=== PATIENT | female | born 1960 | race African-American/Black ===

== ENCOUNTER 2020-04-04 15:54 | Outpatient (REF) | payer OTHER, SELFPAY | END 2020-04-04 15:55 | disposition home or self-care (01) | LOC: HO.LAB 15:54 | PROVIDERS: PCP Internal Medicine; Visit Provider Internal Medicine | DX: Z20.828 Contact with and (suspected) exposure to other viral communicable diseases (principal) | CPT/HCPCS: C9803; U0003 ==

== ENCOUNTER 2020-06-26 07:00 | Day surgery (SDC) | payer BC, SELFPAY ==
[2020-06-20 15:06] VITALS: BMI 46.7
--- NOTE | 2020-06-25 09:40 | P.CONAN_ITS ---
Documented by User: Sarah Bazzi 06/25/20 09:42 HPI - Anesthesia Eval Consult details Narrative: 59yo F for Colon[facility] Past Medical History Medical History (Updated 06/26/20 @ 08:13 by Clari Morrow) Abnormal colonoscopy Depression FHx: colon cancer GERD (gastroesophageal reflux disease) Hyperlipidemia Hypertension Insomnia Mammogram normal Morbid obesity Normal Pap smear Rectal bleeding Snoring Vitamin D deficiency Family History Family History (Updated 03/14/20 @ 14:02 by Kelsea Collins, PAUL, SANTINO) Father History of CVA (cerebrovascular accident) Stroke Mother Pancreatic cancer Diabetes mellitus Sister Colon cancer Brother Stroke Maternal Grandfather No problems noted. Maternal Grandmother No problems noted. Paternal Grandfather No problems noted. Paternal Grandmother No problems noted. Maternal Aunt Breast cancer Maternal Uncle Cancer Brother AIDS Brother Lung cancer Sister Schizophrenia Brother Melanoma Brother No problems noted. Sister Lupus Surgical History Surgical History (Updated 03/14/20 @ 13:54 by Kelsea Collins, PAUL, SANTINO) Hammer toe Social History Social History (Updated 06/20/20 @ 15:06 by Paige Chopra) Alcohol intake: never Smoking Status: Never smoker Use of substances other than those prescribed or required for medical reasons: No Have you been hit, kicked, punched, or otherwise hurt by someone within the past year? If so, by whom?: No Advance Directives: No Advance Directives Information Provided: No Advance Directives on File: No Meds Allergies Allergy/AdvReac Type Severity Reaction Status Date / Time No Known Allergies Allergy Verified 06/26/20 07:16 Home Medications Medication Instructions Recorded Confirmed Type cholecalciferol (vitamin D3) 25 25 mcg PO DAILY 03/19/20 06/20/20 History mcg (1,000 unit) tablet magnesium PO 03/19/20 03/19/20 History multivitamin 1 tab PO DAILY 03/19/20 06/20/20 History cyanocobalamin (vitamin B-12) 1,000 mcg PO DAILY 06/20/20 06/20/20 History [Vitamin B-12] Exam Exam Date and Time: June 25, 2020 0940 Height,Weight and Vital Signs: Height 5 ft 3 in Weight 119.748 kg Assessment and Plan Assessment Anesthesia Assessment: Chart Reviewed Documented by User: Clari Morrow 06/26/20 08:14 [facility] Past Medical History Medical History (Updated 06/26/20 @ 08:13 by Clari Morrow) Abnormal colonoscopy Depression FHx: colon cancer GERD (gastroesophageal reflux disease) Hyperlipidemia Hypertension Insomnia Mammogram normal Morbid obesity Normal Pap smear Rectal bleeding Snoring Vitamin D deficiency Family History Family History (Updated 03/14/20 @ 14:02 by PAUL Kraus, SANTINO) Father History of CVA (cerebrovascular accident) Stroke Mother Pancreatic cancer Diabetes mellitus Sister Colon cancer Brother Stroke Maternal Grandfather No problems noted. Maternal Grandmother No problems noted. Paternal Grandfather No problems noted. Paternal Grandmother No problems noted. Maternal Aunt Breast cancer Maternal Uncle Cancer Brother AIDS Brother Lung cancer Sister Schizophrenia Brother Melanoma Brother No problems noted. Sister Lupus Family history of problems with anesthesia: No Surgical History Surgical History (Updated 03/14/20 @ 13:54 by Kelsea Collins, PAUL, SANTINO) Hammer toe History of Problems with Anesthesia: No Social History Social History (Updated 06/20/20 @ 15:06 by Paige Chopra) Alcohol intake: never Smoking Status: Never smoker Use of substances other than those prescribed or required for medical reasons: No Have you been hit, kicked, punched, or otherwise hurt by someone within the past year? If so, by whom?: No Advance Directives: No Advance Directives Information Provided: No Advance Directives on File: No Meds Allergies Allergy/AdvReac Type Severity Reaction Status Date / Time No Known Allergies Allergy Verified 06/26/20 07:16 Home Medications Medication Instructions Recorded Confirmed Type cholecalciferol (vitamin D3) 25 25 mcg PO DAILY 03/19/20 06/20/20 History mcg (1,000 unit) tablet magnesium PO 03/19/20 03/19/20 History multivitamin 1 tab PO DAILY 03/19/20 06/20/20 History cyanocobalamin (vitamin B-12) 1,000 mcg PO DAILY 06/20/20 06/20/20 History [Vitamin B-12] Exam Height,Weight and Vital Signs: Vital Signs Temp Pulse Resp BP Pulse Ox 06/26/20 07:16 97.2 F 91 20 138/91 H 98 Airway Mallampati Class: II TM Dist: >3cm Neck ROM: Full Partial: Upper Loose/Missing/Broken Teeth: Yes (1 cracked tooth back right) Heart: RRR Lungs: CTAB Assessment and Plan Assessment Anesthesia Assessment: Anesthesia Plan Discussed and Chart Reviewed Final Anesthetic Review NPO: Yes ASA Class: III Final Preanesthetic Review: No Changes in Pt Med Stat, Meds/Allgs Chart Reviewed, Consent Obtained/Reviewed and Anes Risks/Benef Reviewed Patient Risk: Intermediate Procedure Risk: Low Assessment/Block/Sedation in SS: Assess/Block/Sedation-SS Anesthetic Plan Anesthetic Plan: MAC: Disposition: Standard PACU
[2020-06-26 07:16] VITALS: BP 138/91; PULSE 91; RESP 20; TEMP 36.2; O2SAT 98
--- NOTE | 2020-06-26 07:50 | PC.NURSE ---
PATIENT GIVEN FLEETS ENEMA AT 0740 WITH BROWNISH OUTPUT. PATIENT GIVEN ANOTHER FLEETS ENEMA AT 0750.
[2020-06-26] MEDS: Lactated Ringers 1,000 ML 100 ML IVCONT (08:06)
--- NOTE | 2020-06-26 08:40 | MHC.SHP ---
Pre-Procedural Eval Section A The patient is an INPATIENT: No Changes since office visit: No Cold of Flu in the past 2 weeks, No New Medical Problems, No Changes in Medication and No Patient answered all questions The History & Physical has been completed within 30 days and I have reviewed it.: Yes Section B Chief Complaint: bleeding Allergies: Allergies Allergy/AdvReac Type Severity Reaction Status Date / Time No Known Allergies Allergy Verified 06/26/20 07:16 Plan I have reviewed the history and physical and performed a pertinent physical examination on my patient. No changes have occurred unless specified.
[2020-06-26] MEDS: Sodium Phosphate,Mono-Dibasic 133 ML ENEMA PR ×2 (08:46)
[2020-06-26 09:20] VITALS: BP 105/50; PULSE 84; RESP 14; TEMP 36.3; O2SAT 97
--- NOTE | 2020-06-26 09:23 | PM.OP ---
Brief Operative Note Date of Service: 06/26/20 Pre-op diagnosis: change in bowels Post-op diagnosis: same (normal exam) Procedure: colonoscopy Surgeon: Sheng Cohen Anesthesia: MAC Estimated blood loss (mL): 2 Pathology: other (sigmoid biopsies) Condition: stable Disposition: PACU
[2020-06-26 09:35] VITALS: BP 146/82; PULSE 65; RESP 18; TEMP 5373.3; TEMP 9704; O2SAT 99
--- NOTE | 2020-06-26 09:46 | OP_ITS ---
SURGEON: Sheng Cohen MD INDICATIONS: Change in bowel habits. PREOPERATIVE DIAGNOSIS: POSTOPERATIVE DIAGNOSIS: PROCEDURE PERFORMED: ESTIMATED BLOOD LOSS: COMPLICATIONS: ANESTHESIA: ASSISTANTS: SPECIMENS: PROCEDURE: Colonoscopy to the terminal ileum with biopsy. MEDICATIONS: Monitored anesthesia care. DESCRIPTION OF PROCEDURE: History and physical performed. The risks and benefits of the procedure were explained to the patient. Informed consent was obtained. The patient was placed in the left lateral decubitus position. A digital rectal exam was performed and was found to be normal. The Olympus pediatric video colonoscope was introduced into the rectum and advanced to the cecum without difficulty. The cecum was identified by transillumination, palpation, identification of ileocecal valve. Examination was performed. The scope was removed. She tolerated the procedure well and was transferred to recovery area in stable condition. FINDINGS: The terminal ileum was examined and appeared normal. The visualized colonic mucosa was normal. There was a large amount of liquid and semi-formed stool and undigested food limiting the sensitivity examination for detection of small polyps, particularly in the right colon, transverse colon and sigmoid. This was washed and suctioned as best possible. No mucosal changes were identified. Random sigmoid biopsies were obtained. Retroflexed examination showed hypertrophic anal papillae and small internal hemorrhoids. IMPRESSION: Normal colonoscopy. RECOMMENDATION: Follow up the biopsy results. Consider repeat colonoscopy in 3 years based on limitations of today's exam. MD CONSUELO Thornton/DAMARI / [id number] MTDD
--- NOTE | 2020-06-26 10:23 | HO.POSTANES ---
Post Anesthesia Evaluation Post Anesthesia Evaluation Vital Signs: Vital Signs Temp Pulse Resp BP Pulse Ox 06/26/20 09:35 9704 F H 65 18 146/82 H 99 06/26/20 09:20 97.4 F 84 14 105/50 L 97 06/26/20 07:16 97.2 F 91 20 138/91 H 98 Anesthesia: Monitored Mental Status: Awake Pain Control: Satisfactory Nausea/Vomiting: None Hydration: Adequate Anesthesia-Related Issues: No Anes. Related Issues
== END 2020-06-26 09:55 | disposition home or self-care (01) ==
PROVIDERS: PCP Internal Medicine; Visit Provider Internal Medicine Gastroenterology
PROC: 0DJD8ZZ Inspection of Lower Intestinal Tract, Via Natural or Artificial Opening Endoscopic (ICD-10-PCS; CPT 45378; principal; 2020-06-26 08:20)
DX: K62.5 Hemorrhage of anus and rectum (principal); R19.4 Change in bowel habit; K62.89 Other specified diseases of anus and rectum; K64.8 Other hemorrhoids; K21.9 Gastro-esophageal reflux disease without esophagitis; Z80.0 Family history of malignant neoplasm of digestive organs; I10 Essential (primary) hypertension; F32.9 Major depressive disorder, single episode, unspecified; E66.01 Morbid (severe) obesity due to excess calories; Z68.42 Body mass index [BMI] 45.0-49.9, adult; Z79.899 Other long term (current) drug therapy
CPT/HCPCS: 45380; 88305

== ENCOUNTER 2020-12-05 09:08 | Outpatient (REF) | payer BC, SELFPAY ==
--- NOTE | ~2020-12-05 | US_ITS ---
EXAMINATION: US SOFT TISSUE OF THE NECK CLINICAL INFORMATION: Localized swelling, mass or lump, left clavicle. COMPARISON: None. TECHNIQUE: Linear transducer grayscale and color Doppler examination of the left clavicle. FINDINGS: In the left supraclavicular region, there are ovoid, hypoechoic foci measuring 1.2 x 1.5 x 0.8 cm and 0.9 x 0.9 x 0.6 cm. These likely represent lymph nodes with associated fatty herve and cortical thickening. These are located approximately 0.7 cm beneath the skin surface. No additional soft tissue mass or fluid collection. No inflammatory change. US/US soft tiss head and/or neck IMPRESSION: Probable left supraclavicular lymph nodes measuring up to 1.5 and 0.9 cm with thickened cortices.
[2020-12-05 11:27] LABS: Hematocrit 38.4 % (37-47); Hemoglobin 12.3 g/dl (12.0-16.0); Mean Corpuscular Hemoglobin 27.5 pg (27.0-33.0); Mean Corpuscular Volume 85.7 fL (80-98); Mean Platelet Volume 8.7 fL (9.4-12.3); Platelet Count 395 X10*3/uL (160-400); Red Blood Count 4.48 X10*6/uL (4.20-5.50); Red Cell Distribution Width 14.2 % (11.0-16.0); White Blood Count 7.5 X10*3/uL (4.8-10.8)
[2020-12-05 12:14] LABS: Alanine Aminotransferase 14 U/L (0-31); Alkaline Phosphatase 114 U/L (39-117); Anion Gap 14 (12-20); Aspartate Amino Transferase 18 U/L (5-31); Bilirubin Total 0.3 mg/dL (0.0-1.0); Blood Urea Nitrogen 16 mg/dL (9-16); Calcium 9.2 mg/dL (8.4-10.2); Carbon Dioxide 26 mmol/L (22-29); Chloride 108 mmol/L (96-108); Cholesterol 214 mg/dL; Estimated Glomerular Filt Rate 50; Glucose Fasting 89 mg/dL (60-99); HDL Cholesterol 62 mg/dL; LDL Cholesterol Calculated 136 mg/dl; Potassium 4.6 mmol/L (3.3-5.1); Sodium 143 mmol/L (135-145); Total Protein 6.8 g/dL (6.5-8.0); Triglycerides 81 mg/dL
== END 2020-12-05 09:09 | disposition home or self-care (01) ==
LOC: HO.HMGCX 09:08
PROVIDERS: PCP Internal Medicine; Visit Provider Internal Medicine
DX: R22.9 Localized swelling, mass and lump, unspecified (principal); E66.01 Morbid (severe) obesity due to excess calories; E78.5 Hyperlipidemia, unspecified; I10 Essential (primary) hypertension; K62.5 Hemorrhage of anus and rectum; Z80.0 Family history of malignant neoplasm of digestive organs
CPT/HCPCS: 36415; 76536; 80053; 80061; 84443; 85027

== ENCOUNTER 2021-03-18 16:51 | Outpatient (REF) | payer BC, SELFPAY ==
--- NOTE | ~2021-03-18 | XR_ITS ---
EXAMINATION: XR CHEST CLINICAL INFORMATION: Cough COMPARISON: None TECHNIQUE: 2 views of the chest were obtained. FINDINGS: The lungs are well expanded. There is no focal consolidation, edema, or effusion. No pneumothorax. The cardiomediastinal silhouette is within normal limits. No acute osseous abnormality. XR/XR chest 2V IMPRESSION: Clear lungs.
== END 2021-03-18 16:52 | disposition home or self-care (01) ==
LOC: HO.XRAY 16:51
PROVIDERS: PCP Internal Medicine; Visit Provider Hospitalist
DX: R05.9 Cough, unspecified (principal)
CPT/HCPCS: 71046

== ENCOUNTER 2022-10-30 11:23 | Outpatient (REF) | payer BC, SELFPAY ==
--- NOTE | ~2022-10-30 | XR_ITS ---
EXAMINATION: XR CHEST CLINICAL INFORMATION: History of fall. Point tenderness under left breast. COMPARISON: 03/18/2021 TECHNIQUE: 2 views of the chest were obtained. FINDINGS: Lungs are well-inflated and clear. Trachea is midline in position. No interstitial disease, consolidation or mass. No pleural effusion or pneumothorax. Cardiac silhouette and pulmonary vessels are normal in size. The mediastinum and herve have normal contour. Mild spondylosis of the thoracic spine. No rib fractures are seen on these standard PA and lateral views of the chest. XR/XR chest 2V IMPRESSION: No acute cardiopulmonary abnormality.
[2022-10-30 13:54] LABS: MANUAL DIFF FLAG NO
[2022-10-30 13:59] LABS: Basophils Percent Auto 0.4 % (0-2); Eosinophils Absolute Auto 0.1 X10*3/uL (0.0-0.4); Eosinophils Percent Auto 1.7 % (0-4); Hematocrit 39.5 % (37.0-47.0); Hemoglobin 12.6 g/dl (12.0-16.0); Imm Gran Abs Auto 0.03 X10*3/uL (0.00-0.03); Imm Gran Pct Auto 0.4 % (0.0-0.4); Lymphocytes Percent Auto 37.5 % (20-40); Mean Corpuscular HGB Conc 31.9 g/dl (31.0-35.0); Mean Corpuscular Hemoglobin 27.5 pg (27.0-33.0); Mean Corpuscular Volume 86.1 fL (80.0-98.0); Mean Platelet Volume 8.9 fL (9.4-12.3); Monocytes Absolute Auto 0.4 X10*3/uL (0.1-1.2); Monocytes Percent Auto 5.6 % (2-11); Neutrophils Absolute Auto 4.3 x10*3/uL (2.0-8.3); Neutrophils Percent Auto 54.4 % (45-73); Platelet Count 396 X10*3/uL (160-400); Red Blood Count 4.59 X10*6/uL (4.20-5.50); Red Cell Distribution Width 14.4 % (11.0-16.0); White Blood Count 7.9 X10*3/uL (4.8-10.8)
[2022-10-30 14:34] LABS: Alanine Aminotransferase 21 U/L (0-31); Albumin Level 4.2 g/dL (3.5-5.0); Alkaline Phosphatase 127 U/L (39-117); Anion Gap 12 (12-20); Aspartate Amino Transferase 22 U/L (5-31); Bilirubin Total 0.4 mg/dL (0.0-1.0); Blood Urea Nitrogen 13 mg/dL (9-16); Calcium 9.5 mg/dL (8.4-10.2); Carbon Dioxide 29 mmol/L (22-29); Chloride 107 mmol/L (96-108); Cholesterol 224 mg/dL; Estimated Glomerular Filt Rate 48; Glucose Fasting 90 mg/dL (60-99); HDL Cholesterol 66 mg/dL; LDL Cholesterol Calculated 141 mg/dl; Potassium 4.6 mmol/L (3.3-5.1); Sodium 143 mmol/L (135-145); Total Protein 7.1 g/dL (6.5-8.0); Triglycerides 87 mg/dL
[2022-10-30 14:52] LABS: Folate 3.4 ng/mL (> or = 4.0); TSH reflex Free T4 2.01 uIU/mL (0.32-4.0); Vitamin B12 472 pg/mL (200-900); Vitamin D 25-OH Total 60.6 ng/mL (>30)
== END 2022-10-30 11:24 | disposition home or self-care (01) ==
LOC: HO.HMGCX 11:23
PROVIDERS: Absent Provider Physician Assistant; PCP Internal Medicine; Visit Provider Internal Medicine
DX: E66.01 Morbid (severe) obesity due to excess calories (principal); E78.5 Hyperlipidemia, unspecified; I10 Essential (primary) hypertension; Z91.81 History of falling
CPT/HCPCS: 36415; 71046; 80053; 80061; 82306; 82607; 82746; 84443; 85025

== ENCOUNTER 2023-04-27 11:57 | Outpatient (AMB) | payer BC, SELFPAY ==
--- NOTE | 2023-04-27 12:14 | A.OFFPC_ITS ---
Vital Signs 04/27/23 12:17 Height 5 ft 3 in Weight 258 lb BMI 45.7 BP 122/78 Blood Pressure Location Lt brachial Position Sitting Pulse 85 Pulse Source Pulse Oximeter Pulse Oximetry (%) 99 Oxygen Delivery Method Room Air Intake Visit Reasons: Knee Pain Intake Note: Pt is here today for a sick visit. Pt c/o R knee pain for about 2 weeks. Pt also c/o lower back pain that goes down her L leg. Allergies No Known Allergies Allergy (Verified 04/27/23 12:19) Medication List - Last Reconciled 04/27/23 by Steff Verdugo MD cholecalciferol (vitamin D3) 25 mcg PO DAILY cyanocobalamin (vitamin B-12) 1,000 mcg PO DAILY folic acid 1 mg PO DAILY hydrochlorothiazide 12.5 mg PO DAILY magnesium PO omeprazole 40 mg PO DAILY pravastatin 20 mg PO DAILY prednisone 10 mg PO DAILY sertraline 100 mg PO DAILY Tobacco use date assessed: 04/27/23 Fall risk assessment: 1 Fall in past year Last assessed Fall Risk: 04/27/23 Dental Screening Dental Screen Date: 04/27/23 Did you have a dental visit in the last 12 months?: Yes Did you have a dental problem in the last 6 months where you did not have access to dental care?: No Was dental information given to patient?: Patient has dentist HPI Knee Pain HPI Details Pt c/o R knee pain and swelling for 2 weeks, worse when walking but also at rest. She denies any injury. Patient has been taking 3 tablets of Aleve a day with some relief . Pt c/o LBP radiating to LLE, worse when standing or sitting for a long time. Patient denies any weakness or numbness in extremities or change in bowel or bladder function [facility] Medical History (Updated 04/27/23 @ 13:02 by Steff Verdugo MD) Subcutaneous mass Snoring Abnormal colonoscopy Normal Pap smear Mammogram normal Hyperlipidemia Rectal bleeding FHx: colon cancer Hypertension Vitamin D deficiency Morbid obesity Insomnia GERD (gastroesophageal reflux disease) Depression Surgical History Hammer toe Family History Father History of CVA (cerebrovascular accident) Stroke Mother Pancreatic cancer Diabetes mellitus Sister Colon cancer Breast cancer Ovarian cancer Brother Stroke Maternal Grandfather No problems noted. Maternal Grandmother No problems noted. Paternal Grandfather No problems noted. Paternal Grandmother No problems noted. Maternal Aunt Breast cancer Maternal Uncle Cancer Brother AIDS Brother Lung cancer Sister Schizophrenia Brother Melanoma Brother No problems noted. Sister Lupus Other Mental health disorder Substance use disorder Social History Housing: House Alcohol intake: never Patient Tobacco Use Status: Never used Tobacco e-Cigarette/Vaping Use: Never Used Current occupational status: employed Cognitive needs: No Hearing needs: No Vision needs: Yes Questionnaire Thrive Questionnaire Date Thrive assessed: 07/09/22 AUDIT C Alcohol Use Questionnaire (AUDIT-C) 1. How often do you have a drink containing alcohol?: Never 3. How often do you have six or more drinks on one occasion?: Never Total Score: 0 BENIGNO-7 AMB Questionnaire BENIGNO-7 Date BENIGNO - 7 assessed: 07/09/22 Source: Developed by Drs. Kelechi Bernard, Rosa Harris, Gary Whittaker and colleagues, with an educational beulah from [employer]. Review of Systems Const All systems reviewed & are unremarkable except as noted in HPI and below Reports no additional complaints Eyes Reports no additional complaints ENT Reports no additional complaints Card Reports no additional complaints Resp Reports no additional complaints GI Reports no additional complaints Physical exam (Primary Care) Vital Signs: Last Vital Signs Pulse 85 04/27/23 12:17 BP 122/78 04/27/23 12:17 Pulse Ox 99 04/27/23 12:17 Oxygen Delivery Method Room Air 04/27/23 12:17 BMI result Body Mass Index 45.7 Tobacco/Smoking Status: Tobacco use Status Tobacco use date assessed 04/27/23 04/27/23 12:24 Patient Tobacco Use Status Never used Tobacco 04/27/23 12:24 e-Cigarette/Vaping Use Never Used 04/27/23 12:16 Thrive Assessment: Date of Thrive Assessment Date Thrive assessed 07/09/22 04/27/23 12:16 Const General: no acute distress HENMT Head: Yes normal to inspection Neck Neck: Yes supple Resp Effort & Inspection: normal respiratory effort Auscultation: clear to auscultation bilaterally Cardio Rhythm: regular rhythm Heart sounds: S1 normal heart sound present and S2 normal heart sound present Back/Spine/Pelvis Other: decreased range of motion in lumbar spine, paraspinal tenderness left more than right, straight leg rising 90 degrees bilaterally. There is decreased range of motion crepitus of both knees left more than right, there is a tenderness in the medial aspect of right knee, there is no soft tissue swelling erythema warmth of the right knee Assessment and Plan Assessment & Plan (1) Hyperlipidemia: Code(s): E78.5 - Hyperlipidemia, unspecified Plan: Continue statin (2) Hypertension: Code(s): I10 - Essential (primary) hypertension Plan: Continue current medication (3) Knee pain, right: Code(s): M25.561 - Pain in right knee Plan: Check x-rays and refer for physical therapy. Prednisone taper is prescribed because of patient chronic kidney disease stage 3. If the symptoms persist she will be referred to orthopedics for cortisone injection (4) Sciatica: Code(s): M54.30 - Sciatica, unspecified side Plan: Patient was giving back exercises if the symptoms persist once patient completed physical therapy for a right knee she will start PT for lower back pain Orders: Orders Comprehensive [place]. Panel Fast Today E78.5 - Hyperlipidemia, unspecified, I10 - Essential (primary) hypertension Lipid Panel Today E78.5 - Hyperlipidemia, unspecified, I10 - Essential (primary) hypertension Vitamin D 25-OH Total Today E78.5 - Hyperlipidemia, unspecified, I10 - Essential (primary) hypertension Vitamin B12 and Folate Today E78.5 - Hyperlipidemia, unspecified, I10 - Essential (primary) hypertension XR knee standing BI Today M25.561 - Pain in right knee, M25.562 - Pain in left knee PT Evaluation and Treatment Today M25.561 - Pain in right knee XR lumbar spine 2-3V Today M54.30 - Sciatica, unspecified side Medications: New prednisone Four tablets p.o. q.d. for 3 days then 3 tablets p.o. q.d. for 3 days then 2 tablets p.o. q.d. for 3 days then 1 tablet p.o. q.d. for 3 days 10 mg PO DAILY 30 tabs 0RF Coding Level of Care Code Est Pt Level 4 (67986) Diagnoses Hyperlipidemia E78.5 Hypertension I10 Knee pain, right M25.561 Sciatica M54.30
[2023-04-27 12:17] VITALS: BP 122/78; PULSE 85; O2SAT 99; BMI 45.7
== END 2023-04-27 13:13 | disposition home or self-care (01) ==
PROVIDERS: PCP Internal Medicine; Visit Provider Internal Medicine
DX: E78.5 Hyperlipidemia, unspecified (principal); I10 Essential (primary) hypertension; M25.561 Pain in right knee; M54.30 Sciatica, unspecified side
CPT/HCPCS: 99214

== ENCOUNTER 2023-05-21 08:38 | Outpatient (REF) | payer BC, SELFPAY ==
[2023-05-21 12:15] LABS: Alanine Aminotransferase 20 U/L (0-31); Albumin Level 3.9 g/dL (3.5-5.0); Alkaline Phosphatase 98 U/L (39-117); Anion Gap 10 (12-20); Aspartate Amino Transferase 18 U/L (5-31); Bilirubin Total 0.2 mg/dL (0.0-1.0); Blood Urea Nitrogen 13 mg/dL (9-16); Calcium 9.4 mg/dL (8.4-10.2); Carbon Dioxide 28 mmol/L (22-29); Chloride 107 mmol/L (96-108); Cholesterol 232 mg/dL (<200); Estimated Glomerular Filt Rate 53; Glucose Fasting 98 mg/dL (60-99); HDL Cholesterol 63 mg/dL (>40); LDL Cholesterol Calculated 140 mg/dL (<100); Sodium 141 mmol/L (135-145); Triglycerides 147 mg/dL (<150); Vitamin D 25-OH Total 68.3 ng/mL (>30)
[2023-05-21 12:22] LABS: Folate 5.8 ng/mL (> or = 4.0)
[2023-05-21 14:52] LABS: Vitamin B12 411 pg/mL (200-900)
== END 2023-05-21 08:39 | disposition home or self-care (01) ==
LOC: HO.HMGCX 08:38
PROVIDERS: PCP Internal Medicine; Visit Provider Internal Medicine
DX: M25.561 Pain in right knee (principal); M25.562 Pain in left knee; M54.30 Sciatica, unspecified side; I10 Essential (primary) hypertension; E78.5 Hyperlipidemia, unspecified
CPT/HCPCS: 36415; 72100; 73565; 80053; 80061; 82306; 82607; 82746

== ENCOUNTER 2023-07-15 09:56 | Outpatient (RCR) | payer BC, SELFPAY ==
--- NOTE | 2023-07-15 12:48 | MHC.PT.EP ---
[facility] [place] Office [place] Office [place] Office [address] [phone] F: [phone] F: [phone] F: [phone] F: [phone] Physical Therapy Plan of Care Date of Evaluation: 07/15/23 Date of Surgery: Diagnosis: RIGHT KNEE PAIN Assessment: 62 YO FEMALE REF TO PT FOR Rt > Lt KNEE PAINDUE TO OA- SHE RECENTLY RETIRED, RESIDES ALONE, AND ENJOYS GARDENING. SHE HAS DECR ROM Rt KNEE (-20* TO 106*)> Lt KNEE; (+) LUMBOPELVIC ASYMMETRY CREATING INCR LLI EFFECT, DECR PROX LEs STRENGTH, AND GENERAL KNEE PAIN. SHE HAS DECR MAKENNA TO INCR STANDING, STAIR NAVIGATION, AND SQUATTING- SHE IS MOTIVATED FOR PT TO DEV A HEP, ADDRESS SX MGMT TECHN, AND IMPROVE STRENGTH-> FUNCTIONAL MOB MAKENNA. Frequency and Duration: The patient will be seen 2 x Wk x 5 WKS Short Term Goals: *INITIATE HEP TO IMPROVE LE PROPRIOCEPTION/ LUMBOPELVIC STABILITY *Pt'S KNEE PAIN DECR TO 3-09/01 *IMPROVE Rt > Lt KNEE TERMINAL EXTENSION TO REDUCE LLI *INCR FLEXIB IN PSOAS/HIP IR/ CALF MM TO IMPROVE EFFICIENCY OF GAIT ON LEVEL AND STAIRS *IMPROVE FUNCT SQUAT MECHANICS INCR ACTIV OF QUADS/ GLUTES Alf Goals: *Pt DEMON APPROP BODY MECH *Pt WILL IMPROVE LUMBOPELVIC/ Lt LE STRENGTH TO AT LEAST 5-/5 *Pt REPORT INCREASED ADL/ ACTIVITY MAKENNA EVIDENT W IMPROVED LEFI SCORE *Pt INDEP W PROGRESSIVE HEP AND SELF-SX MGMT TECHN Pt RESUME REG ADLs / FITNESS WALKING , EVIDENT W IMPROVED LEFI SCORE (AT EVAL 49/80 ) Treatment Plan: Modalities to reduce pain, spasms and effusion. Manual therapy to restore motion and function. Therapeutic exercise to improve strength and flexibility. Neuromuscular re-education for posture and balance. Therapeutic activities to return to functional activities of daily living. Electronically signed by: DAILY FINK,PT Please sign and return to therapist. Thank you for your referral.
--- NOTE | 2023-08-06 12:53 | MHC.PT.DC ---
[facility] [place] Office [place] Office [place] Office [address] Alc[address] [facility] [phone] F: [phone] F: [phone] F: [phone] F: [phone] Physical Therapy Discharge Report Diagnosis: RIGHT KNEE PAIN Date of Surgery: Date of Evaluation: 07/15/23 Date of Discharge: 08/06/23 Treatments to Date: 1 Cancellations to Date: 3 No Shows to Date: 0 Discharge Status: Visit Non-compliance Discharge Summary: THE Pt HAS ATTENDED HER PT EVAL , HOWEVER, SHE HAS BEEN UNABLE TO ATTEND ANY ADDITIONALLY SCHED APPTS AND SHE DID NOT MEET HER PT GOALS. SHE IS THEREFORE DISCHARGED FROM PT PER THE ATTENDANCE POLICY ISSUED / SIGNED UPON EVAL. THE Pt WAS A DECENT CANDIDATE FOR SKILLED PT- PLEASE REFER HER BACK WHEN HER SCHEDULE ALLOWS FOR CONTINUITY. Electronically signed by: DAILY FINK,PT Please sign and return to therapist. Thank you for your referral.
== END 2023-08-06 12:53 | disposition home or self-care (01) ==
LOC: HO.PT 09:56
PROVIDERS: PCP Internal Medicine; Visit Provider Internal Medicine
DX: M25.561 Pain in right knee (principal)
CPT/HCPCS: 97110; 97162

== ENCOUNTER 2023-07-31 14:04 | Outpatient (AMB) | payer BC, SELFPAY ==
[2023-07-31 14:05] VITALS: BP 140/80; PULSE 87; TEMP 36.3; O2SAT 98; BMI 45.2
--- NOTE | 2023-07-31 14:05 | AM.OFFWIN_ITS ---
Intake Vital Signs 07/31/23 14:05 Height 5 ft 3 in Weight 255 lb BMI 45.2 BP 140/80 H Blood Pressure Location Lt brachial Position Sitting Pulse 87 Pulse Source Pulse Oximeter Temp 97.4 F Temp Source Temporal Artery Scan Pulse Oximetry (%) 98 Oxygen Delivery Method Room Air Intake Visit Reasons: EST/cut on left forearm(lobby) Intake Note: pt is here today for cut on lft forearm started today Patient Tobacco Use Status: Never used Tobacco Allergies No Known Allergies Allergy (Verified 07/31/23 14:09) Do you need a note to return to daycare/school/sports/work: No HPI HPI Comments History of Present Illness Details 62 y/o female who presents to walk in [facility] with c/o Cut on her left arm dorsal. She was taking down Xmas Tree and a Plastic ornament cut her arm. [facility] Medical History (Updated 04/27/23 @ 13:02 by Steff Verdugo MD) Subcutaneous mass Snoring Abnormal colonoscopy Normal Pap smear Mammogram normal Hyperlipidemia Rectal bleeding FHx: colon cancer Hypertension Vitamin D deficiency Morbid obesity Insomnia GERD (gastroesophageal reflux disease) Depression Surgical History Hammer toe Family History Father History of CVA (cerebrovascular accident) Stroke Mother Pancreatic cancer Diabetes mellitus Sister Colon cancer Breast cancer Ovarian cancer Brother Stroke Maternal Grandfather No problems noted. Maternal Grandmother No problems noted. Paternal Grandfather No problems noted. Paternal Grandmother No problems noted. Maternal Aunt Breast cancer Maternal Uncle Cancer Brother AIDS Brother Lung cancer Sister Schizophrenia Brother Melanoma Brother No problems noted. Sister Lupus Other Mental health disorder Substance use disorder Social History Housing: House Alcohol intake: never Patient Tobacco Use Status: Never used Tobacco e-Cigarette/Vaping Use: Never Used Current occupational status: employed Cognitive needs: No Hearing needs: No Vision needs: Yes Physical Exam Vital Signs: Last Vital Signs Temp 97.4 F 07/31/23 14:05 Pulse 87 07/31/23 14:05 BP 140/80 H 07/31/23 14:05 Pulse Ox 98 07/31/23 14:05 Oxygen Delivery Method Room Air 07/31/23 14:05 BMI result Body Mass Index 45.2 Const General: comfortable and no acute distress Nutritional Appearance: obese Orientation/consciousness: patient oriented x3 Skin Other: At the back of left arm with 1.5 inch long laceration, Superficial not Deep and actively bleeding. Trauma: laceration (left arm, dorsally elbow - actively bleeding) Neuro General: patient oriented x3, moves all extremities and no focal motor deficits Psych Speech and movement: Normal speech and movement present Affect: normal affect Assessment & Plan Assessment & Plan (1) Laceration of upper arm: Code(s): S41.119A - Laceration without foreign body of unspecified upper arm, initial encounter Qualifiers: Encounter type: initial encounter Laterality: left Qualified Code(s): S41.112A - Laceration without foreign body of left upper arm, initial encounter Plan: - Applied pressure dressing in the office for 40 minutes. This seemed to control the bleeding. - Applied Kerlix roll, xeroform dressing and wrapped with Coban, for pressure support. Advised Pt to keep dressing clean and dry at-least for the next 24 hours. - Instructed Pt to go to ED if bleeding continues soaking through pressure dressing. - Stitches not indicated at this time, wound superficial. Coding Level of Care Code Est Pt Level 3 (07288) Diagnoses Laceration of left upper arm, initial encounter S41.112A Encounter type: initial encounter Laterality: left Time Spent (min) 15
== END 2023-07-31 15:35 | disposition home or self-care (01) ==
PROVIDERS: PCP Internal Medicine; Visit Provider Nurse Practitioner Family
DX: S41.112A Laceration without foreign body of left upper arm, initial encounter (principal)
CPT/HCPCS: 99213

== ENCOUNTER 2023-11-17 06:24 | Day surgery (SDC) | payer MEDICARE, SELFPAY ==
[2023-11-17 06:33] VITALS: BP 158/77; PULSE 88; RESP 18; TEMP 36.4; O2SAT 98; BMI 46.7
[2023-11-17] MEDS: Lactated Ringers 1,000 ML 50 ML IVCONT (06:55)
--- NOTE | 2023-11-17 07:22 | HO.ANESPROP2 ---
[facility] Active Problems Active Problems: All Active Problems Sciatica (Acute) Knee pain, right (Acute) Knee pain, bilateral (Acute) Annual physical exam (Acute) Cough (Acute) Subcutaneous mass (Acute) Snoring (Acute) Abnormal colonoscopy (Acute) Normal Pap smear (Acute) Mammogram normal (Acute) Morbid obesity (Acute) Hyperlipidemia (Acute) Hypertension (Acute) Rectal bleeding (Acute) FHx: colon cancer (Acute) Past Medical History Medical History Subcutaneous mass Snoring Abnormal colonoscopy Normal Pap smear Mammogram normal Hyperlipidemia Rectal bleeding FHx: colon cancer Hypertension Vitamin D deficiency Morbid obesity Insomnia GERD (gastroesophageal reflux disease) Depression Family History Family History Father History of CVA (cerebrovascular accident) Stroke Mother Pancreatic cancer Diabetes mellitus Sister Colon cancer Breast cancer Ovarian cancer Brother Stroke Maternal Grandfather No problems noted. Maternal Grandmother No problems noted. Paternal Grandfather No problems noted. Paternal Grandmother No problems noted. Maternal Aunt Breast cancer Maternal Uncle Cancer Brother AIDS Brother Lung cancer Sister Schizophrenia Brother Melanoma Brother No problems noted. Sister Lupus Other Mental health disorder Substance use disorder Family history of problems with anesthesia: No Surgical History Surgical History Hammer toe History of Problems with Anesthesia: No Social History Social History Housing: House Alcohol intake: never Patient Tobacco Use Status: Never used Tobacco e-Cigarette/Vaping Use: Never Used Are you DNR?: No Advance Directives: No Advance Directives Information Provided: Yes Nutrition Risks: No Nutritional Risk Current occupational status: employed Cognitive needs: No Hearing needs: No Vision needs: Yes Meds Allergies Allergy/AdvReac Type Severity Reaction Status Date / Time No Known Allergies Allergy Verified 07/31/23 14:09 Active Medications: Current Medications Lactated Ringer's (Lr) 1,000 mls @ 50 mls/hr IVCONT .Q20H NATALIE Last Admin: 11/17/23 06:55 Dose: 50 mls/hr Home Medications ?Medication ?Instructions ?Recorded ?Confirmed ?Last Taken ?Type cholecalciferol (vitamin D3) 25 25 mcg PO DAILY 03/19/20 11/17/23 Unknown History mcg (1,000 unit) tablet magnesium PO 03/19/20 04/27/23 Unknown History cyanocobalamin (vitamin B-12) 1,000 mcg PO DAILY 06/20/20 11/17/23 Unknown History 1,000 mcg lozenges Exam Height,Weight and Vital Signs: Height 5 ft 3 in Weight 119.703 kg Last Vital Signs Temp 97.5 F 11/17/23 06:33 Pulse 88 11/17/23 06:33 Resp 18 11/17/23 06:33 BP 158/77 H 11/17/23 06:33 Pulse Ox 98 11/17/23 06:33 O2 Del Method Room Air 11/17/23 06:33 Airway Mallampati Class: III TM Dist: >3cm Neck ROM: Full Partial: Upper Loose/Missing/Broken Teeth: Yes and Upper Heart: RRR Lungs: CTA Assessment and Plan Assessment Anesthesia Assessment: Anesthesia Plan Discussed and Chart Reviewed Final Anesthetic Review Family History of Problems with Anesthesia: No History of Problems with Anesthesia: No NPO: Yes ASA Class: III Final Preanesthetic Review: Meds/Allgs Chart Reviewed, Consent Obtained/Reviewed and Anes Risks/Benef Reviewed Patient Risk: Intermediate Procedure Risk: Low Anesthetic Plan Anesthetic Plan: MAC: Disposition: Standard PACU
--- NOTE | 2023-11-17 07:28 | MHC.SHP ---
Pre-Procedural Eval Section A - 24 Hr Update-Section A only Date of Service: 11/17/23 Section B - Complete if H&P > 30 days Chief Complaint: screening Details of Present Illness: see H&P no changes Relevant Family History (Specify if Yes): No Relevant Social History: None Present Medications: see Short Stay Collaborative assessment Medical History: No relevant PMH History of Previous Operations: No relevant previous surgery Allergies: Allergies Allergy/AdvReac Type Severity Reaction Status Date / Time No Known Allergies Allergy Verified 07/31/23 14:09 Review of Systems Sugical H&P ROS: Negative: Constitution, Cardiovascular, Respiratory, Neurological, Psychiatric, Hem-Onc, Allergic/Immunologic, Gastrointestinal, Genitourinary, Musculoskeletal, Integumentary, Endocrine and Eyes/Ears/Nose/Throat Exam Surgical H&P Exam: Normal: HEENT, Normal: Heart, Normal: Lungs, Normal: Extremities, Normal: Abdomen, Normal: Skin and Normal: Neurological Plan Diagnosis/Plan: Unchanged I have reviewed the history and physical and performed a pertinent physical examination on my patient. No changes have occurred unless specified. Time Spent With Patient Time: Total time managing care of this patient today ____ minutes.
[2023-11-17 08:08] VITALS: BP 111/57; PULSE 70; RESP 18; TEMP 36.4; O2SAT 100
[2023-11-17 08:25] VITALS: BP 120/68; PULSE 74; RESP 16; TEMP 36.4; O2SAT 95
--- NOTE | 2023-11-17 08:52 | OP_ITS ---
DATE OF SERVICE: 11/17/2023 SURGEON: Sheng Cohen MD INDICATIONS: Colon cancer screening and prior history of adenomatous colon polyps. PREOPERATIVE DIAGNOSIS: POSTOPERATIVE DIAGNOSIS: PROCEDURE PERFORMED: Colonoscopy to the terminal ileum. ESTIMATED BLOOD LOSS: COMPLICATIONS: ANESTHESIA: Monitored anesthesia care. ASSISTANTS: SPECIMENS: DESCRIPTION OF PROCEDURE: A history and physical was performed. The risks and benefits of the procedure were explained to the patient and informed consent was obtained. The patient was placed in the left lateral decubitus position. A digital rectal exam was performed and was found to be normal. The Olympus pediatric video colonoscope was introduced into the rectum and advanced to the cecum. The cecum was identified by transillumination, palpation, and identification of ileocecal valve. Examination was performed and the scope was removed. She tolerated the procedure well and was returned to recovery area in stable condition. FINDINGS: The terminal ileum was examined and appeared normal. The visualized colonic mucosa was normal. The quality of the prep was good. No polyps were identified. There was mild sigmoid diverticulosis. Retroflexed examination showed hypertrophic anal papillae and small internal hemorrhoids. IMPRESSION: Normal colonoscopy. RECOMMENDATIONS: 1. Follow up as needed. 2. Consider repeat colonoscopy in 5 years because of family history of colon cancer. MD CONSUELO Thornton/BLUEL / [phone]
== END 2023-11-17 08:49 | disposition home or self-care (01) ==
PROVIDERS: PCP Internal Medicine; Visit Provider Internal Medicine Gastroenterology
PROC: 0DJD8ZZ Inspection of Lower Intestinal Tract, Via Natural or Artificial Opening Endoscopic (ICD-10-PCS; CPT 45378; principal; 2023-11-17 07:30)
DX: Z12.11 Encounter for screening for malignant neoplasm of colon (principal); Z86.010 Personal history of colon polyps; Z80.0 Family history of malignant neoplasm of digestive organs; K57.30 Diverticulosis of large intestine without perforation or abscess without bleeding; K64.8 Other hemorrhoids; K62.89 Other specified diseases of anus and rectum; K59.09 Other constipation; K21.9 Gastro-esophageal reflux disease without esophagitis; I10 Essential (primary) hypertension; E78.00 Pure hypercholesterolemia, unspecified; F32.A Depression, unspecified; E55.9 Vitamin D deficiency, unspecified; Z79.899 Other long term (current) drug therapy
CPT/HCPCS: G0105; J2704

== ENCOUNTER 2024-04-18 10:45 | Emergency (ER) | payer MEDICARE, SELFPAY ==
--- NOTE | ~2024-04-18 | CT_ITS ---
EXAMINATION: CT ABDOMEN AND PELVIS WITHOUT CONTRAST CLINICAL INFORMATION: Right flank pain. COMPARISON: None available. TECHNIQUE: Multidetector volumetric imaging was performed from the superior aspect of the liver through the pubic symphysis. Sagittal and coronal reformatted images were obtained on the technologist's workstation. This CT examination was performed using dose optimization techniques as appropriate, variously including the following: *Automated exposure control *Adjustment of mA and/or kV according to patient size (this includes techniques or standardized protocols for targeted exams where dose is matched to indication/reason for exam; i.e. extremities or head) *Use of iterative reconstruction technique DLP: 855 mGy-cm FINDINGS: LUNG BASES: The visualized lung bases are unremarkable. LIVER, GALLBLADDER, AND BILIARY TREE: The liver is normal in size, shape, and attenuation. No focal hepatic lesion or biliary ductal dilatation is present. The gallbladder is unremarkable with no evidence of radiopaque gallstones, gallbladder wall thickening, or obvious pericholecystic inflammatory changes. PANCREAS: Unremarkable. SPLEEN: Unremarkable. ADRENAL GLANDS: Unremarkable. KIDNEYS AND URETERS: The kidneys are normal in size, shape, and attenuation. No hydronephrosis, hydroureter, or calculi seen. No perinephric stranding. BLADDER: Unremarkable. GASTROINTESTINAL TRACT: There are scattered diverticula of the sigmoid and descending colon. There is no diverticulitis. There is no bowel wall thickening /edema. There is no bowel obstruction. There is a moderate volume of stool in the colon. The appendix is normal . The small bowel loops are unremarkable. The stomach is normal. There is a small hiatal hernia. ABDOMINAL WALL: No significant hernia is appreciated. LYMPH NODES: Normal. VASCULAR: Unremarkable. PELVIC VISCERA: Uterus is anteverted. Multiple calcifications in the uterus with lobular contour due to fibroids. No adnexal abnormality. OSSEOUS STRUCTURES: No acute ossific noted. No fracture. Alignment of vertebrae normal. Mild to moderate degenerative spondylosis of disc height narrowing and endplate spurs and facet joint arthrosis. Degenerative change most significant at the lower thoracic spine and the lower lumbar spine. CT/CT abdomen pelvis wo IV con IMPRESSION: 1. No acute abnormality CT scan abdomen pelvis. 2. No acute abnormality of the bowel. 3. No acute abnormality of the kidneys. 4. Fibroid uterus. 5. Degenerative spondylosis of lower thoracic and lumbar spine. Fleischner guidelines were followed. Electronically signed by: Jamaal Rob MD 04/18/2024 03:46 PM EST RP
[2024-04-18 10:52] VITALS: BP 146/96; BP 185/85; PULSE 70; PULSE 74; RESP 20; TEMP 36.7; O2SAT 98; O2SAT 99; BMI 46.1
[2024-04-18 10:56] VITALS: BP 186/91; PULSE 66; RESP 20; TEMP 36.7; O2SAT 98
--- NOTE | 2024-04-18 12:29 | ED.GENADULT ---
HPI - General Adult General Chief complaint: General Medical Stated complaint: R LOW BACK PAIN SINCE T-1 PER EMS Time Seen by Provider: 04/18/24 12:29 Source: patient Mode of arrival: ambulatory Limitations: no limitations History of Present Illness ED Provider: Dari CHILDS narrative: Patient is a 63-year-old female with history of HTN, HLD, obesity, sciatica presenting to the emergency department with complaint of right lower back pain radiating to lateral hip and thigh since yesterday. Denies fall or other trauma. Denies saddle anesthesia or bowel or bladder incontinence. Symptoms improved with heat and Tylenol, but returned this am. Denies urinary frequency, urgency, hematuria. Denies nausea or vomiting. Reports that she is not able to bear weight on right leg due to pain. MD complaint: back pain Onset (ago): day(s) Location: back Radiation: distal Severity: severe Quality: stabbing Pain Consistency: constant Relieving factors: medication Associated symptoms: denies other symptoms Treatments prior to arrival: heat therapy and other Related Data Home Medications ?Medication ?Instructions ?Recorded ?Confirmed cholecalciferol (vitamin D3) 25 25 mcg PO DAILY 03/19/20 11/17/23 mcg (1,000 unit) tablet magnesium PO 03/19/20 04/27/23 cyanocobalamin (vitamin B-12) 1,000 mcg PO DAILY 06/20/20 11/17/23 1,000 mcg lozenges Previous Rx's ?Medication ?Instructions ?Recorded folic acid 1 mg tablet 1 mg PO DAILY #90 tabs 06/19/23 hydrochlorothiazide 12.5 mg tablet 12.5 mg PO DAILY #90 tabs 01/13/24 omeprazole 40 mg capsule,delayed 40 mg PO DAILY #90 caps 01/13/24 release pravastatin 20 mg tablet 20 mg PO DAILY #90 tabs 01/13/24 sertraline 100 mg tablet 100 mg PO DAILY #90 tabs 01/13/24 cyclobenzaprine 10 mg tablet 10 mg PO TID PRN muscle spasm #14 04/18/24 tabs lidocaine 5 % topical patch 1 patch topical DAILY #15 ea 04/18/24 prednisone 20 mg tablet 40 mg (2 x 20 mg) PO DAILY #10 tabs 04/18/24 Allergies Allergy/AdvReac Type Severity Reaction Status Date / Time No Known Allergies Allergy Verified 04/18/24 10:54 Review of Systems Review of Systems: As per HPI Yes all other systems are reviewed and are negative Constitutional: Constitutional: Reports as per HPI [facility] Past Medical History Medical History Subcutaneous mass Snoring Abnormal colonoscopy Normal Pap smear Mammogram normal Hyperlipidemia Rectal bleeding FHx: colon cancer Hypertension Vitamin D deficiency Morbid obesity Insomnia GERD (gastroesophageal reflux disease) Depression Surgical History Hammer toe Family History Family History Father History of CVA (cerebrovascular accident) Stroke Mother Pancreatic cancer Diabetes mellitus Sister Colon cancer Breast cancer Ovarian cancer Brother Stroke Maternal Grandfather No problems noted. Maternal Grandmother No problems noted. Paternal Grandfather No problems noted. Paternal Grandmother No problems noted. Maternal Aunt Breast cancer Maternal Uncle Cancer Brother AIDS Brother Lung cancer Sister Schizophrenia Brother Melanoma Brother No problems noted. Sister Lupus Other Mental health disorder Substance use disorder Social History Social History Housing: House Alcohol intake: never Patient Tobacco Use Status: Never used Tobacco Smoked in Last 30 Days: No e-Cigarette/Vaping Use: Never Used Use of substances other than those prescribed or required for medical reasons: No Advance Directives: No Advance Directives Information Provided: Yes Do you have a plan to hurt others: No Plan Current occupational status: employed Cognitive needs: No Hearing needs: No Vision needs: Yes Physical Exam ED Vital Signs: Vital Signs - 24 hr 04/18/24 10:52 04/18/24 10:56 04/18/24 12:58 Temperature 98.0 F 98.0 F Pulse Rate 70 66 Respiratory Rate 20 20 22 H Blood Pressure 185/85 H 186/91 H Pulse Oximetry 98 98 Oxygen Delivery Method Room Air Room Air 04/18/24 14:28 Temperature 98.0 F Pulse Rate 79 Respiratory Rate 16 Blood Pressure 149/91 H Pulse Oximetry 97 Oxygen Delivery Method Room Air BMI result Body Mass Index 46.1 Vital signs have been reviewed and appear to be correct. Blood pressure initially elevated, improved spontaneously without intervention. Heart rate normal. Respiratory rate normal. Temperature normal. Oxygen saturation normal. Const General: cooperative, healthy appearing and no acute distress Orientation/consciousness: oriented to person, oriented to place, oriented to time and patient oriented x3 Limitations: no limitations HENSD Head: Yes normocephalic and Yes atraumatic Ears: external ears normal General nose exam: Normal external nose present Face and sinus: Yes face symmetric Mouth: oropharynx normal and moist mucous membranes Throat: Yes uvula midline Eyes Pupils: Equal, round and reactive pupils present Neck Neck: Yes normal visual inspection and Yes supple Resp Effort & Inspection: normal respiratory effort and able to speak in complete sentences Auscultation: clear to auscultation bilaterally Cardio Rate: regular rate Rhythm: regular rhythm Heart sounds: S1 normal heart sound present and S2 normal heart sound present GI Palpation (GI): Soft to palpation and nontender Auscultation: normoactive bowel sounds General: Yes no CVA tenderness Back/Spine/Pelvis Back: no CVA tenderness Thoracic/Lumbar Spine: thoracic and lumbar spine normal to inspection, thoraco-lumbar ROM normal, pain with thoraco-lumbar ROM, paraspinal muscle tenderness on the right in the lower thoracic and in the upper lumbar, No thoracic spinal tenderness, No lumbar spinal tenderness and straight leg raise positive right Skin General skin exam: elasticity normal and turgor normal Neuro General: oriented to person, oriented to place, oriented to time, patient oriented x3, tone normal, moves all extremities, Normal light touch and pain sensation, no focal motor deficits, CN's II-XI intact bilaterally and deep tendon reflexes 2+ bilaterally Cranial nerves: Yes Equal, round and reactive pupils present Cognition (Neuro): normal cognition Extrem General: Yes full ROM, Yes no pedal edema and Yes no calf tenderness Right lower extremity: hip/thigh Details: normal to inspection, tenderness Location: of the hip Location: laterally and normal ROM and foot Details: normal capillary refill and vascular exam Details: dorsalis pedis pulse present, posterior tibial pulse present and normal capillary refill Psych Mental Status: mental status grossly normal Affect: normal affect Thought process: Normal thought process present Medications Administered Discontinued Medications Generic Name Dose Route Start Last Admin Trade Name Freq PRN Reason Stop Dose Admin Morphine Sulfate 4 mg 04/18/24 12:36 04/18/24 12:58 Morphine Sulfate 4 Mg/Ml Cartridge IVPUSH 04/18/24 12:37 4 mg ONCE ONE Administration Protocol Medical Decision Making Medical Decision Making MDM Narrative: Patient is a 63-year-old female with history of HTN, HLD, obesity, sciatica presenting to the emergency department with complaint of right lower back pain radiating to lateral hip and thigh since yesterday. On exam patient is awake, A+Ox3, VS WNL, afebrile, normal neurological exam without focal deficits, physical exam findings as above. Given reported symptoms and physical exam findings, initial differential includes lumbar strain, lumbar radiculopathy, degenerative disc disease, disc herniation, spinal stenosis, spondylosis. Less likely vertebral fracture. Do not suspect malignancy/mass, SEA, cauda equina/cord compression. Labs unremarkable. CT notable for spondylosis, no hydronephrosis or renal calculi. My interpretation is in agreement with the radiologist's interpretation. Significant improvement in pain after medication, able to ambulate. Will discharge home with prednisone, flexeril, lidocaine patches. Follow up with PCP as patient will likely need PT. Return precautions discussed at bedside. Patient verbalized understanding of and agreement with plan. Differential Diagnosis Differential Diagnoses: The differential diagnosis associated with the presentation includes As per [facility] Admission/Observation Consideration of admission/observation: Escalation of care including admission/observation considered Patient would have been admitted to the hospital had their work up had any findings where hospital admission was appropriate and their clinical presentation warranted hospital admission. Lab Data [facility] Lab Attestation statement: I reviewed the patient's lab results. As per [facility] 04/18/24 12:58 04/18/24 12:58 Labs: Lab Results 04/18/24 Range/Units 12:58 WBC 9.6 (4.8-10.8) X10*3/uL RBC 4.85 (4.20-5.50) X10*6/uL Hgb 13.6 (12.0-16.0) g/dl Hct 39.6 (37.0-47.0) % MCV 81.6 (80.0-98.0) fL MCH 28.0 (27.0-33.0) pg MCHC 34.3 (31.0-35.0) g/dl RDW 14.0 (11.0-16.0) % Plt Count 419 H (160-400) X10*3/uL MPV 8.4 L (9.4-12.3) fL Immature Gran % (Auto) 0.4 (0.0-0.4) % Neut % (Auto) 51.6 (45-73) % Lymph % (Auto) 41.8 H (20-40) % Mingo % (Auto) 5.1 (2-11) % Eos % (Auto) 0.6 (0-4) % Baso % (Auto) 0.5 (0-2) % Lymph # (Auto) 4.0 (1.2-4.9) X10*3/uL Mingo # (Auto) 0.5 (0.1-1.2) X10*3/uL Eos # (Auto) 0.1 (0.0-0.4) X10*3/uL Baso # (Auto) 0.1 (0.0-0.2) X10*3/uL Abs Immat Gran (auto) 0.04 H (0.00-0.03) X10*3/uL Absolute Neuts (auto) 5.0 (2.0-8.3) x10*3/uL Absolute Nucleated RBC 0.000 (0.0-0.012) X10*3/uL Nucleated RBC % (auto) 0.0 (0.0-0.2) /100WBC Sodium 140 (135-145) mmol/L Potassium 4.1 (3.3-5.1) mmol/L Chloride 104 (96-108) mmol/L Carbon Dioxide 24 (22-29) mmol/L Anion Gap 16 (12-20) BUN 11 (9-16) mg/dL Creatinine 1.13 (0.5-1.4) mg/dL Estim Creat Clear Calc 61.5 Estimated GFR 48 Random Glucose 101 (60-115) mg/dL Calcium 9.8 (8.4-10.2) mg/dL Total Bilirubin 0.2 (0.0-1.0) mg/dL AST 35 H (5-31) U/L ALT 20 (0-31) U/L Alkaline Phosphatase 117 (39-117) U/L Total Protein 7.6 (6.5-8.0) g/dL Albumin 4.0 (3.5-5.0) g/dL Independent Interpretation I performed an independent interpretation of an: CT Scan Interpretation: CT notable for spondylosis, no hydronephrosis or renal calculi. Radiology Impression Discussion of test interpretation with radiology: I have reviewed the radiologist's reading. Radiologist Impression: CT/CT abdomen pelvis wo IV con IMPRESSION: 1. No acute abnormality CT scan abdomen pelvis. 2. No acute abnormality of the bowel. 3. No acute abnormality of the kidneys. 4. Fibroid uterus. 5. Degenerative spondylosis of lower thoracic and lumbar spine. External Record Review External record reviewed: Inpatient record, Office record and Outpatient record Prescription Management I considered prescription management with: Pain Medication and Other Discharge Plan Discharge Clinical Impression: Lumbar radiculopathy, right Patient Disposition: Home, Self-Care Instructions: Acute Low Back Pain (ED), Lumbar Radiculopathy (ED), Lower Back Exercises (ED) Additional Instructions: You were evaluated in the emergency department today for back pain. Your evaluation did not show signs of medical conditions requiring emergent intervention at this time. We recommended that you use ibuprofen or Tylenol per package directions every 6 hours as needed for pain. If necessary, you can alternate these medications so that you take one medication every 3 hours. For instance, at noon take ibuprofen, then at 3:00 p.m. take Tylenol, then at 6:00 p.m. take ibuprofen. You have been prescribed a muscle relaxer which you may take every 8 hours as needed for spasms. You have been prescribed 5% topical lidocaine patches which you can wear for up to 12 hours in a 24 hour period. Do not apply heat directly over the patches. You have been prescribed prednisone which is a steroid to decrease inflammation. Please schedule an appointment for follow-up with your primary care physician this week for further evaluation of your symptoms. Return to the emergency department if you experience worsening back pain, difficulty walking, fevers, numbness, tingling, incontinence, groin numbness or tingling, or any other concerning symptoms. Prescriptions: New prednisone 20 mg tablet 40 mg PO DAILY Qty: 10 0RF lidocaine 5 % adhesive patch,medicated 1 patch topical DAILY Qty: 15 0RF Rx Instructions: leave on most painful area for up to 12 hrs cyclobenzaprine 10 mg tablet 10 mg PO TID PRN (Reason: muscle spasm) Qty: 14 0RF No Action folic acid 1 mg tablet 1 mg PO DAILY Qty: 90 1RF pravastatin 20 mg tablet 20 mg PO DAILY Qty: 90 1RF hydrochlorothiazide 12.5 mg tablet 12.5 mg PO DAILY Qty: 90 1RF sertraline 100 mg tablet 100 mg PO DAILY Qty: 90 1RF omeprazole 40 mg capsule,delayed release(DR/EC) 40 mg PO DAILY Qty: 90 1RF cyanocobalamin (vitamin B-12) 1,000 mcg Lozenge 1,000 mcg PO DAILY cholecalciferol (vitamin D3) 25 mcg (1,000 unit) tablet 25 mcg PO DAILY magnesium PO Print Language: Syriac
[2024-04-18 12:58] VITALS: RESP 22
[2024-04-18] MEDS: Morphine Sulfate 4 MG/ML CARTRIDGE IVPUSH (12:58)
[2024-04-18 13:02] LABS: MANUAL DIFF FLAG NO
[2024-04-18 13:08] LABS: Basophils Absolute Auto 0.1 X10*3/uL (0.0-0.2); Basophils Percent Auto 0.5 % (0-2); Eosinophils Absolute Auto 0.1 X10*3/uL (0.0-0.4); Eosinophils Percent Auto 0.6 % (0-4); Hematocrit 39.6 % (37.0-47.0); Hemoglobin 13.6 g/dl (12.0-16.0); Imm Gran Abs Auto 0.04 X10*3/uL (0.00-0.03); Imm Gran Pct Auto 0.4 % (0.0-0.4); Lymphocytes Percent Auto 41.8 % (20-40); Mean Corpuscular HGB Conc 34.3 g/dl (31.0-35.0); Mean Corpuscular Volume 81.6 fL (80.0-98.0); Mean Platelet Volume 8.4 fL (9.4-12.3); Monocytes Absolute Auto 0.5 X10*3/uL (0.1-1.2); Monocytes Percent Auto 5.1 % (2-11); Neutrophils Percent Auto 51.6 % (45-73); Platelet Count 419 X10*3/uL (160-400); Red Blood Count 4.85 X10*6/uL (4.20-5.50); White Blood Count 9.6 X10*3/uL (4.8-10.8)
[2024-04-18 13:21] LABS: Alanine Aminotransferase 20 U/L (0-31); Alkaline Phosphatase 117 U/L (39-117); Anion Gap 16 (12-20); Aspartate Amino Transferase 35 U/L (5-31); Bilirubin Total 0.2 mg/dL (0.0-1.0); Blood Urea Nitrogen 11 mg/dL (9-16); Calcium 9.8 mg/dL (8.4-10.2); Carbon Dioxide 24 mmol/L (22-29); Chloride 104 mmol/L (96-108); Creatinine Clr Calc Pharmacy 61.5; Estimated Glomerular Filt Rate 48; Glucose Random 101 mg/dL (60-115); Potassium 4.1 mmol/L (3.3-5.1); Sodium 140 mmol/L (135-145); Total Protein 7.6 g/dL (6.5-8.0)
[2024-04-18 14:28] VITALS: BP 149/91; PULSE 79; RESP 16; TEMP 36.7; O2SAT 97
[2024-04-18] MEDS: oxyCODONE HCl Immed Release 5 MG TABLET PO (16:26)
[2024-04-18] MEDS: predniSONE 20 MG TABLET 60 MG PO (16:27)
== END 2024-04-18 16:30 | disposition home or self-care (01) ==
PROVIDERS: Registered Nurse Emergency; Emergency Provider Emergency Medicine; PCP Internal Medicine
DX: M54.16 Radiculopathy, lumbar region (principal); R10.9 Unspecified abdominal pain; I10 Essential (primary) hypertension; E78.5 Hyperlipidemia, unspecified; M54.50 Low back pain, unspecified; M25.551 Pain in right hip; Z79.899 Other long term (current) drug therapy
CPT/HCPCS: 36415; 74176; 80053; 85025; 96374; 99284; J2270

== ENCOUNTER 2024-05-06 13:33 | Outpatient (AMB) | payer MEDICARE, SELFPAY ==
[2024-05-06 13:34] VITALS: BP 124/70; PULSE 101; O2SAT 98; BMI 45.9
--- NOTE | 2024-05-06 13:34 | MHC.PC.OV ---
Vital Signs 05/06/24 13:34 Height 5 ft 3 in Weight 259 lb BMI 45.9 BP 124/70 Blood Pressure Location Rt brachial Position Sitting Pulse 101 H Pulse Source Pulse Oximeter Pulse Oximetry (%) 98 Oxygen Delivery Method Room Air Intake Visit Reasons: ER [facility] flank/back pain Intake Note: Pt is here today for a ER follow up from [facility]. Allergies No Known Allergies Allergy (Verified 05/06/24 13:34) Tobacco use date assessed: 05/06/24 Fall risk assessment: No Falls in past year Last assessed Fall Risk: 05/06/24 Dental Screening Dental Screen Date: 05/06/24 Did you have a dental visit in the last 12 months?: Yes Did you have a dental problem in the last 6 months where you did not have access to dental care?: No Was dental information given to patient?: Patient has dentist HPI ER [facility] flank/back pain HPI Details Pt presents for f/u ER visit for R side mid lumbar region pain radiating to R anterior thigh worse when walking [address] of the abdomen pelvis was negative for acute abnormalities. Patient was treated with prednisone and cyclobenzaprine and is feeling better. She develops vaginal spotting for 1 day a week ago and will call her ob/gyn physician to schedule an appointment [facility] Medical History Subcutaneous mass Snoring Abnormal colonoscopy Normal Pap smear Mammogram normal Hyperlipidemia Rectal bleeding FHx: colon cancer Hypertension Vitamin D deficiency Morbid obesity Insomnia GERD (gastroesophageal reflux disease) Depression Surgical History Hammer toe Family History Father History of CVA (cerebrovascular accident) Stroke Mother Pancreatic cancer Diabetes mellitus Sister Colon cancer Breast cancer Ovarian cancer Brother Stroke Maternal Grandfather No problems noted. Maternal Grandmother No problems noted. Paternal Grandfather No problems noted. Paternal Grandmother No problems noted. Maternal Aunt Breast cancer Maternal Uncle Cancer Brother AIDS Brother Lung cancer Sister Schizophrenia Brother Melanoma Brother No problems noted. Sister Lupus Other Mental health disorder Substance use disorder Social History Housing: House Alcohol intake: never Patient Tobacco Use Status: Never used Tobacco e-Cigarette/Vaping Use: Never Used service: No Current occupational status: employed Cognitive needs: No Hearing needs: No Vision needs: Yes Questionnaire PHQ-9 Over the last 2 weeks, how often have you been bothered by any of the following problems? 1. Little interest or pleasure in doing things: not at all 2. Feeling down, depressed, or hopeless: not at all 3. Trouble falling or staying asleep, or sleeping too much: not at all 4. Feeling tired or having little energy: not at all 5. Poor appetite or overeating: not at all 6. Feeling bad about yourself - or that you are a failure or have let yourself or your family down: not at all 7. Trouble concentrating on things, such as reading the newspaper or watching television: not at all 8. Moving or speaking so slowly that other people could have noticed. Or the opposite - being so fidgety or restless that you have been moving around a lot more than usual: not at all 9. Thoughts that you would be better off or of hurting yourself in some way: not at all Total score: 0 Depression Screening Interpretation: Negative Depression Screening Done: Yes Source: Developed by Drs. Kelechi Bernard, Rosa Harris, Gary Whittaker and colleagues, with an educational beulah from [employer]. Thrive Questionnaire Date Thrive assessed: 05/06/24 I am a: Patient What is your living situation today?: I have a steady place to live Within the past 12 months, did the food you bought not last and you didn't have the money to get more?: Never true Within the past 12 months, did you worry whether your food would run out before you got money to buy more?: Never true Do you have trouble paying for medicines?: No Do you have trouble getting transportation to medical appointments?: No Do you have trouble paying your heating and electricity bill?: No Do you have trouble taking care of your child, family member or friend?: No Do you have trouble with day-to-day activities such as bathing, preparing meals, shopping, managing finances, etc.?: No Are you currently unemployed and looking for a job?: No Are you interested in more education?: No Please select the resources that you would like help with: None THRIVE Score: 0 AUDIT C Alcohol Use Questionnaire (AUDIT-C) 1. How often do you have a drink containing alcohol?: Never 3. How often do you have six or more drinks on one occasion?: Never Total Score: 0 BENIGNO-7 AMB Questionnaire BENIGNO-7 Date BENIGNO - 7 assessed: 05/06/24 Feeling nervous, anxious, or on edge: 0 = Not at all Not being able to stop or control worryin = Not at all Worrying too much about different things: 0 = Not at all Trouble relaxin = Not at all Being so restless that it is hard to sit still: 0 = Not at all Becoming easily annoyed or irritable: 0 = Not at all Feeling afraid as if something awful might happen: 0 = Not at all Total BENIGNO-7 score (0-4 normal; 5-9 mild; 10-14 moderate; 15-21 severe): 0 Source: Developed by Drs. Kelechi Bernard, Rosa Harris, Gary Whittaker and colleagues, with an educational beulah from [employer]. BENIGNO-7 Assessment Billing BENIGNO-7 Assessment Tool: BENIGNO-7 Assessment 71799 Review of Systems Const All systems reviewed & are unremarkable except as noted in HPI and below Eyes Reports no additional complaints ENT Reports no additional complaints Card Reports no additional complaints Resp Reports no additional complaints GI Reports no additional complaints Reports no additional complaints Physical exam (Primary Care) Vital Signs: Last Vital Signs Pulse 101 H 05/06/24 13:34 BP 124/70 05/06/24 13:34 Pulse Ox 98 05/06/24 13:34 Oxygen Delivery Method Room Air 05/06/24 13:34 BMI result Body Mass Index 45.9 Tobacco/Smoking Status: Tobacco use Status Tobacco use date assessed 05/06/24 05/06/24 13:42 Patient Tobacco Use Status Never used Tobacco 05/06/24 13:34 e-Cigarette/Vaping Use Never Used 05/06/24 13:34 PHQ-9: PHQ-9 Score PHQ-9: Total score 0 05/06/24 13:42 Depression Screening Interpretation: Negative Thrive Assessment: Date of Thrive Assessment Date Thrive assessed 05/06/24 05/06/24 13:42 Const General: no acute distress HENMT Head: Yes normal to inspection Throat: Yes posterior oropharynx normal Neck Neck: Yes supple Resp Effort & Inspection: normal respiratory effort Auscultation: clear to auscultation bilaterally Cardio Rhythm: regular rhythm Heart sounds: S1 normal heart sound present and S2 normal heart sound present GI Inspection: Yes normal to inspection Palpation (GI): Soft to palpation Percussion: Yes normal to percussion Auscultation: normal bowel sounds Back/Spine/Pelvis Other: Paraspinal tenderness in the right mid lumbar region straight leg rising 90 degrees bilaterally Coding Level of Care Code Est Pt Level 4 (69182) Diagnoses Hypertension I10 Hyperlipidemia E78.5 Lower back pain M54.50 Postmenopausal bleeding N95.0 Additional Codes BENIGNO-7 Assessment Billing - BENIGNO-7 Assessment Tool: BENIGNO-7 Assessment 67670 ([id number]) Assessment & Plan Assessment & Plan (1) Hypertension: Code(s): I10 - Essential (primary) hypertension Category: Medical Plan: Continue hydrochlorothiazide return for fasting blood work and physical (2) Hyperlipidemia: Code(s): E78.5 - Hyperlipidemia, unspecified Category: Medical Plan: Continue statin (3) Lower back pain: Code(s): M54.50 - Low back pain, unspecified Category: Medical Plan: Patient recovered, regular physical activity like walking discussed with the patient (4) Postmenopausal bleeding: Comment: Patient is established with [facility] fitting room attendant Code(s): N95.0 - Postmenopausal bleeding Category: Medical Plan: Patient will follow-up with ob/gyn physician Orders: Orders Comprehensive [place]. Panel Fast Today E66.01 - Morbid (severe) obesity due to excess calories, E78.5 - Hyperlipidemia, unspecified, I10 - Essential (primary) hypertension Lipid Panel Today E66.01 - Morbid (severe) obesity due to excess calories, E78.5 - Hyperlipidemia, unspecified, I10 - Essential (primary) hypertension UA w Microscopic Today E66.01 - Morbid (severe) obesity due to excess calories, E78.5 - Hyperlipidemia, unspecified, I10 - Essential (primary) hypertension Vitamin B12 and Folate Today E66.01 - Morbid (severe) obesity due to excess calories, E78.5 - Hyperlipidemia, unspecified, I10 - Essential (primary) hypertension Complete Blood Count Auto Diff Today E66.01 - Morbid (severe) obesity due to excess calories, E78.5 - Hyperlipidemia, unspecified, I10 - Essential (primary) hypertension Vitamin D 25-OH (D2 and D3) Today E66.01 - Morbid (severe) obesity due to excess calories, E78.5 - Hyperlipidemia, unspecified, I10 - Essential (primary) hypertension TSH reflex Free T4 Today E66.01 - Morbid (severe) obesity due to excess calories, E78.5 - Hyperlipidemia, unspecified, I10 - Essential (primary) hypertension
--- OUTSIDE RECORDS SUMMARY | 2024-05-06 13:35 | XMS_ITS ---
Author Organization [facility] Address [address] [place] [phone] Care Team Providers Care Formula Bottler Name Role Phone Steff Verdugo MD Primary Care Provider Sheng Washington Jr REASON FOR VISIT PREP MEDICATIONS Medication SIG (Take, Route, Fr equency, Duration) Notes Start Date End Date Status Golytely 236 GM as directed before c olonoscopy Orally every 15 minutes for 1 day(s) 11/10/2023 Active Encounters Encounter Location Date Provider Diagnosis [facility] [address] [place] [phone] 11/10/2023 Sheng Cohen Jr PLAN OF TREATMENT Medication Medication Name Sig Start Date Stop Date Notes Golytely 236 GM as directed before c olonoscopy Orally every 15 minutes for 1 day(s) 11/10/2023
--- OUTSIDE RECORDS SUMMARY | 2024-05-06 13:35 | XMS_ITS ---
Author Organization [facility] Address [address] [place] [address] Care Team Providers Care Custom Feed Mill Operator Helper Name Role Phone Steff Verdugo MD Primary Care Provider Sheng Washington Jr REASON FOR VISIT screening,fam hx colon ca PROBLEMS Problem Type ICD Code Onset Dates Problem Status W/U Status Risk SNOMED Code Notes Problem Personal history of colonic polyps (Z86.010) Active confirmed History of polyp of colon (situation) (586936034) Encounters Encounter Location Date Provider Diagnosis [facility] [address] [place] [id number] 11/17/2023 Sheng Cohen Jr Encounter for screening colonoscopy Z12.11 and Personal history of colonic polyps Z86.010 ASSESSMENTS Encounter Date Diagnosis Assessment Notes Treatment Notes Treatment Clinical Notes 11/17/2023 Encounter for screening colonoscopy (ICD-10 - Z12.11) 11/17/2023 Personal history of colonic polyps (ICD-10 - Z86.010) PLAN OF TREATMENT No Information
--- OUTSIDE RECORDS SUMMARY | 2024-05-06 13:36 | XMS_ITS | Patient Health Record ---
Author Organization [facility] Address [address] [place] [phone] Care Team Providers Care Yacht Builder Name Role Phone Steff Verdugo MD Primary Care Provider Sheng Washington Jr Unavailable ALLERGIES No Known Allergies REASON FOR REFERRAL No Information MEDICATIONS Medication SIG (Take, Route, Frequency, Duration) Notes Start Date End Date Status Aleve 220 MG 1 tablet with food o r milk as needed Orally every 12 hrs/prn Active Vitamin D3 1000 UNIT 1 capsule Orally On ce a day Active Omeprazole 40 MG 1 capsule Orally Onc e a day Active hydroCHLOROthiazide 12.5 MG 1 capsule in the morning Orally Once a day Active Golytely 236 GM as directed before colonoscopy Orally every 15 minutes for 1 day(s) 11/10/2023 Active Pravastatin Sodium 20 MG TAKE ONE TABLET BY MOUTH EVERY DAY Oral for 30 Active Sertraline HCl 100 MG 1 tablet Orally On ce a day for 30 day(s) Active IMMUNIZATIONS Vaccine Route Administration Date Status Comme nts Influenza Unknown 03/17/2018 Administered Influenza Unknown 02/23/2020 Administered Influenza Unknown 09/21/2023 Refused SOCIAL HISTORY Tobacco Use: Social History Observation Description Date Details (start date - stop date) Never Smoker NA - NA Sex Assigned At : Social History Observation Description Sex Assigned At Unknown Tobacco Use/Smoking Question Answer Notes Patient is a nonsmoker Alcohol Screen Question Answer Notes Did you have a drink containing alcohol in the p ast year? 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 non-steroidal anti-inflammatorie s (NSAID) (Z79.1) Active confirmed 438862708 Problem Encounter for other preprocedural examination (Z01.818) Active confirmed 684560703 Problem Change in bowel habits (R19.4) Active confirmed 708013653 Problem Family history of colonic polyps (Z83.71) Active confirmed 241593206 Problem Long-term current use of high risk medication other than anticoagulant (Z79.899) Active confirmed 744770878 Problem FH: colon cancer (Z80.0) Active confirmed 678296948 VITAL SIGNS Temperature 97.8 degrees Fahrenheit 09/21/2023 Blood pressure diastolic 00 mm Hg 09/21/2023 Height 63 in 09/21/2023 Blood pressure systolic 000 mm Hg 09/21/2023 Weight 255 lbs 09/21/2023 BMI 45.17 kg/m2 09/21/2023 Encounters Encounter Location Date Provider [place] [facility] [place] [address] [place] [phone] 11/17/2023 Sheng Cohen Jr Encounter for screening colonoscopy Z12.11 and Personal history of colonic polyps Z86.010 [facility] [address] [place] [phone] 09/21/2023 Sheng Cohen Jr Colon cancer screening Z12.11 ; Encounter for other preprocedural examination Z01.818 ; FH: colon cancer Z80.0 and Long-term current use of high risk medication other than anticoagulant Z79.[address] [place] [phone] 11/10/2023 Sheng Choen Jr ASSESSMENTS Encounter Date Diagnosis Assessment Notes Treatment Notes Treatment Clinical Notes 11/17/2023 Encounter for screening colonoscopy (ICD-10 - Z12.11) 11/17/2023 Personal history of colonic polyps (ICD-10 - Z86.010) 09/21/2023 Colon cancer screening (ICD-10 - Z12.11) 09/21/2023 Encounter for other preprocedural examination (ICD-10 - Z01.818) 09/21/2023 FH: colon cancer (ICD-10 - Z80.0) 09/21/2023 Long-term current us e of high risk medication other than anticoagulant (ICD-10 - Z79.899) PLAN OF TREATMENT Future Test Test Name Order Date COLONOSCOPY 10/29/2016 COLONOSCOPY 06/14/2020 COLONOSCOPY 09/21/2023 Insurance Providers Payer Name Payer Address Payer Phone Subscriber Number Group Number Insured Name Patient Relationship to Insured Coverage Start Date Coverage End Date [facility] [address] [place], [place] [id number] LISANDRO GARCIA Self - patient is the insured MEDICAL (GENERAL) HISTORY Medical History History ICD Code colon polyps, colonoscopy , normal, three-year followup due to poor prep. hypertension osteoarthritis gastroesophageal reflux disease elevated cholesterol depression vitamin D deficiency Surgical History Surgery Date(Month/Year) toe surgery
--- OUTSIDE RECORDS SUMMARY | 2024-05-06 13:36 | XMS_ITS ---
Author Organization [facility] Address [address] [place] [phone] Care Team Providers Care Ob/Gyn Doctor Name Role Phone Kartik SHETH, Steff Primary Care Provider Sheng Washington Jr Unavailable ALLERGIES No Known Allergies REASON FOR VISIT Patient presents today for a colon screening MEDICATIONS Medication SIG (Take, Route, Frequency, Duration) [...] the morning Orally Once a day Active Sertraline HCl 100 MG 1 tablet Orally On ce a day for 30 day(s) Active Pravastatin Sodium 20 MG TAKE ONE TABLET BY MOUTH EVERY DAY Oral for 30 Active IMMUNIZATIONS Vaccine Route Administration Date Status Comme nts Influenza Unknown 09/21/2023 Refused SOCIAL HISTORY Tobacco [...] W/U Status Risk SNOMED Code Notes Problem FH: colon cancer (Z80.0) Active confirmed 121408665 Problem Encounter for other preprocedural examination (Z01.818) Active confirmed 945653055 Problem Long-term current use of high risk medication other than anticoagulant (Z79.899) Active confirmed 414341314 VITAL SIGNS BMI 45.17 kg/m2 09/21/2023 Blood pressure systolic 000 mm Hg 09/21/19 24 Blood pressure diastolic 00 mm Hg 024 Height 63 in 09/21/2023 Temperature 97.8 degrees Fahrenheit 09/21/19 24 Weight 255 lbs 09/21/2023 Encounters Encounter Location Date Provider Diagnosis [facility] [address] [place] [address] 09/21/2023 Sheng Cohen Jr Colon cancer screening Z12.11 ; Encounter for other preprocedural examination Z01.818 ; FH: colon cancer Z80.0 and Long-term current use of high risk medication other than anticoagulant Z79.899 ASSESSMENTS Encounter Date Diagnosis Assessment Notes Treatment Notes Treatment Clinical Notes 09/21/2023 Colon cancer screening (ICD-10 - Z12.11) 09/21/2023 Encounter for other preprocedural examination (ICD-10 - Z01.818) 09/21/2023 FH: colon cancer (ICD-10 - Z80.0) 09/21/2023 Long-term current us e of high risk medication other than anticoagulant (ICD-10 - Z79.899) PLAN OF TREATMENT Future Test Test Name Order Date COLONOSCOPY 09/21/2023 Next Appt Details Follow Up: 1 Year, Reason: Progress Notes * Examination Category Sub-Category Detail Notes General Examination GENERAL APPEARANCE: in no ac ghassan distress HEAD: normocephalic EYES: sclera non-icteric NECK/THYROID: no lymphadenopathy HEART: S1, S2 normal, no mu rmurs CHEST: normal shape and exp ansion LUNGS: clear to auscultatio n bilaterally ABDOMEN: soft, nontender, non distended, bowel sounds present, no organomegaly SKIN: anicteric EXTREMITIES: no clubbing, cyanosi s, or edema PSYCH: cognitive function i ntact ORAL CAVITY: mucosa moist
== END 2024-05-06 14:41 | disposition home or self-care (01) ==
PROVIDERS: PCP Internal Medicine; Visit Provider Internal Medicine
DX: I10 Essential (primary) hypertension (principal); E78.5 Hyperlipidemia, unspecified; M54.50 Low back pain, unspecified; N95.0 Postmenopausal bleeding

== ENCOUNTER → 2024-05-06 13:33 | Outpatient (BNVA) | payer MEDICARE, SELFPAY | PROVIDERS: PCP Internal Medicine; Visit Provider Internal Medicine | DX: I10 Essential (primary) hypertension (principal); E78.5 Hyperlipidemia, unspecified; M54.50 Low back pain, unspecified; N95.0 Postmenopausal bleeding; E66.01 Morbid (severe) obesity due to excess calories; Z68.42 Body mass index [BMI] 45.0-49.9, adult | CPT/HCPCS: 96127; 99212 ==

== ENCOUNTER 2025-02-18 13:01 | Outpatient (REF) | payer MEDICARE, SELFPAY ==
[2025-02-18 15:13] LABS: Appearance Urine Clear; Glucose Urine UA Negative (Negative); PH 7.0 (5.0-9.0); Specific Gravity - Urine 1.015 (1.005-1.025)
[2025-02-18 15:21] LABS: MANUAL DIFF FLAG NO
[2025-02-18 15:24] LABS: Hematocrit 37.4 % (37.0-47.0); Hemoglobin 12.6 g/dl (12.0-16.0); Imm Gran Abs Auto 0.03 X10*3/uL (0.00-0.03); Imm Gran Pct Auto 0.4 % (0.0-0.4); Lymphocytes Absolute Auto 2.7 X10*3/uL (1.2-4.9); Mean Corpuscular HGB Conc 33.7 g/dl (31.0-35.0); Mean Corpuscular Hemoglobin 28.4 pg (27.0-33.0); Mean Corpuscular Volume 84.4 fL (80.0-98.0); NRBC Abs Auto 0.000 X10*3/uL (0.0-0.012); NRBC Pct Auto 0.0 /100WBC (0.0-0.2); Platelet Count 355 X10*3/uL (160-400); Red Blood Count 4.43 X10*6/uL (4.20-5.50); White Blood Count 7.3 X10*3/uL (4.8-10.8)
[2025-02-18 15:46] LABS: Alanine Aminotransferase 15 U/L (0-31); Albumin Level 4.3 g/dL (3.5-5.0); Alkaline Phosphatase 113 U/L (39-117); Anion Gap 11 (12-20); Aspartate Amino Transferase 24 U/L (5-31); Blood Urea Nitrogen 21 mg/dL (9-16); Calcium 9.6 mg/dL (8.4-10.2); Carbon Dioxide 29 mmol/L (22-29); Chloride 108 mmol/L (96-108); Cholesterol 223 mg/dL (<200); Estimated Glomerular Filt Rate 48; HDL Cholesterol 56 mg/dL (>40); Potassium 4.3 mmol/L (3.3-5.1); Sodium 144 mmol/L (135-145); Total Protein 7.4 g/dL (6.5-8.0); Triglycerides 114 mg/dL (<150)
[2025-02-18 16:16] LABS: Folate 12.9 ng/mL (> or = 4.0); Vitamin B12 906 pg/mL (200-900)
[2025-02-24 13:38] LABS: Vitamin D 25-OH, D2 <4 ng/mL; Vitamin D 25-OH, D3 49 ng/mL; Vitamin D 25-OH, Total 49 ng/mL (30-100)
== END 2025-02-18 13:02 | disposition home or self-care (01) ==
LOC: HO.HMGCLDS 13:01
PROVIDERS: PCP Internal Medicine; Visit Provider Internal Medicine
DX: R42 Dizziness and giddiness (principal); I10 Essential (primary) hypertension; E78.5 Hyperlipidemia, unspecified; E66.01 Morbid (severe) obesity due to excess calories
CPT/HCPCS: 36415; 80053; 80061; 81001; 82306; 82607; 82746; 84443; 85025; 99212

== ENCOUNTER 2025-02-18 13:01 | Outpatient (AMB) | payer MEDICARE, SELFPAY ==
--- OUTSIDE RECORDS SUMMARY | 2023-11-17 03:30 | XMS_ITS ---
Author Organization [facility] Address [address] [place] [address] Care Team Providers Care Legal Compliance Officer Name Role Phone Kartik SHETH, Steff Primary Care Provider Sheng Washington Jr Unavailable [phone] REASON FOR VISIT screening,fam hx colon ca Problems Problem Type SNOMED Code ICD Code Onset Dates Problem Status W/U Status Risk Notes Problem History of polyp of colon (situation) (336196420) Personal history of colonic polyps (Z86.010) Active confirmed Encounters Encounter Location Date Provider Diagnosis [facility] [place] [facility] [address] [place] [id number] 11/17/2023 Sheng Cohen Jr Encounter for screening colonoscopy Z12.11 and Personal history of colonic polyps Z86.010 Assessments Encounter Date Diagnosis (ICD Code) Assessment Notes Treatment Notes Treatment Clinical Notes Section Notes 11/17/2023 Encounter for screening colonoscopy (ICD-10 - Z12.11) 11/17/2023 Personal history of colonic polyps (ICD-10 - Z86.010) Plan Of Treatment No Information Progress Notes * PEDRO GARCIAY NDOB: [birth year] (64 yo F)Acc No.[id number]:11/17/2023 COLON WITH MAC Patient: LISANDRO MACHUCA Provider: Merrill Cohen MD :[id number] A ge:63 Y S ex:Female Date:11/17/2023 Address:[address] [place], [place] [id number] Pcp:Steff Verdugo MD Subjective: * Chief Complaints: * 1 . Screening,fam hx colon ca. * Medical History: Objective: * Vitals: Assessment: * Assessment: 1. E ncounter for screening colonoscopy - Z12.11 (Primary) 2 . P ersonal history of colonic polyps - Z86.010 Plan: * Treatment: * Procedure Codes: 4 5378 DIAGNOSTIC COLONOSCOPY * Preventive Medicine: [place] Screening: C olonoscopy W as interval between colonoscopies three years or more? Y es, W as last colonoscopy performed three or more years ago? Y es. * * The named appointment provid er may or may not be the originator of this progress note, and it is not deemed complete until electronically signed by the appointment provider. Sign off status: Pending * Provider: Merrill Cohen MD Date: 0 11/17/2023 Generated for Moncho rodriguez/Valerie/Calixtoitting on: 0 02/18/2025 01:03 PM EDT
[2025-02-18 13:04] VITALS: BP 126/80; PULSE 67; TEMP 36.5; O2SAT 97
--- NOTE | 2025-02-18 13:04 | MHC.OFFWIV ---
Intake Vital Signs 02/18/25 13:04 Height 5 ft 3 in BP 126/80 Blood Pressure Location Lt brachial Position Sitting Pulse 67 Pulse Source Pulse Oximeter Temp 97.7 F Temp Source Oral Pulse Oximetry (%) 97 Intake Visit Reasons: EP Dizziness, nausea, slight headache Patient Tobacco Use Status: Never used Tobacco Allergies No Known Allergies Allergy (Verified 02/18/25 13:04) Do you need a note to return to daycare/school/sports/work: No HPI HPI Comments History of Present Illness Details 64-year-old female presents with dizziness ongoing since this morning at approximately 9-930 a.m. after waking up. She reports she turned over in bed and suddenly started feeling like the room was spinning. She said it got a lot worse after she tried to go from seated to standing. She reports this has happened to her before however it went away after a little bit today has been present intermittently ever since. She denies head trauma. Denies difficulty with speech, weakness, facial asymmetry, visual disturbances, headache. She is not on blood thinners. Physical exam benign. NIH stroke scale 0 History and physical exam concerning for BPPV versus vertigo. Unlikely Meniere's no ringing in the ears. Unlikely intracranial hemorrhage, stroke posterior stroke. I did offer for patient to go to the ED for head CT however patient does not want to do that at this time. I will send meclizine to her pharmacy for suspected BPPV. Educated on adequate hydration slow positional changes. [facility] Medical History Subcutaneous mass Snoring Abnormal colonoscopy Normal Pap smear Mammogram normal Hyperlipidemia Rectal bleeding FHx: colon cancer Hypertension Vitamin D deficiency Morbid obesity Insomnia GERD (gastroesophageal reflux disease) Depression Surgical History Hammer toe Family History Father History of CVA (cerebrovascular accident) Stroke Mother Pancreatic cancer Diabetes mellitus Sister Colon cancer Breast cancer Ovarian cancer Brother Stroke Maternal Grandfather No problems noted. Maternal Grandmother No problems noted. Paternal Grandfather No problems noted. Paternal Grandmother No problems noted. Maternal Aunt Breast cancer Maternal Uncle Cancer Brother AIDS Brother Lung cancer Sister Schizophrenia Brother Melanoma Brother No problems noted. Sister Lupus Other Mental health disorder Substance use disorder Social History Housing: House Alcohol intake: never Patient Tobacco Use Status: Never used Tobacco e-Cigarette/Vaping Use: Never Used service: No Current occupational status: employed Cognitive needs: No Hearing needs: No Vision needs: Yes Review of Systems Const All systems reviewed & are unremarkable except as noted in HPI and below Physical Exam Exam Exam: Appearance: Alert.? Oriented X3.? No acute distress.? Head: Normocephalic, atraumatic, no step-offs or deformities Eyes: Pupils equal, round and reactive to light.? ENT: Pharynx normal.? Neck: Normal inspection.? Neck supple.? CVS: Normal heart rate and rhythm.? Pulses normal.? Respiratory: No respiratory distress.? Breath sounds normal.? Abdomen: Soft and nontender.? Skin: Skin warm and dry.? Normal skin color.? Normal skin turgor.? Extremities: No lower extremity edema.? No calf ttp. 5/5 strength to bilateral upper and lower extremities Back: No midline tenderness, no C-spine tenderness, full range of motion, no CVA tenderness bilaterally Neuro: Oriented X 3.? No motor deficit.? No sensory deficit. CN 2-12 intact NIHSS-0 Vital Signs: Last Vital Signs Temp 97.7 F 02/18/25 13:04 Pulse 67 02/18/25 13:04 BP 126/80 02/18/25 13:04 Pulse Ox 97 02/18/25 13:04 vss Assessment & Plan Assessment & Plan (1) Vertigo: Code(s): R42 - Dizziness and giddiness Plan Take your medications as prescribed. If you were prescribed antibiotics today, it is important that you take your medication to their entirety, do not skip any doses, do not finish them early. Follow-up with your primary care provider this week. Return to the emergency department with new or worsening symptoms. In case of emergency call 911 Medications: New meclizine 25 mg PO BID PRN 30 tabs 0RF dizziness Coding Level of Care Code Est Pt Level 3 (25573) Diagnoses Vertigo R42
--- OUTSIDE RECORDS SUMMARY | 2025-02-18 13:04 | XMS_ITS | Patient Health Record ---
Author Organization [facility] Address [address] [place] [phone] Care Team Providers Care Business Developer Name Role Phone Steff Verdugo MD Primary Care Provider Sheng Washington Jr Unavailable Allergies No Known Allergies Reason For Referral No Information Medications Medication SIG (Take, Route, Frequency, Duration) Notes [...] ce a day for 30 day(s) Active Immunizations Vaccine Route Administration Date Status Comme nts Influenza Unknown 03/17/2018 Administered Influenza Unknown 02/23/2020 Administered Influenza Unknown 09/21/2023 Refused Social History Tobacco Use: Social History Observation Description Date Details (start date - stop date) Never Smoker NA - NA Tobacco Use/Smoking Question Answer Notes Patient is a nonsmoker Alcohol Screen Question Answer Notes Did you have a drink containing alcohol in the p ast year? 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 non-steroidal anti-inflammatori es (NSAID) (Z79.1) Active confirmed Problem 788773767 Encounter for other preprocedural examination (Z01.818) Active confirmed Problem 855604022 Change in bowel habits (R19.4) Active confirmed Problem 778882166 Family history o f colonic polyps (Z83.71) Active confirmed Problem 911334737 Long-term curren t use of high risk medication other than anticoagulant (Z79.899) Active confirmed Problem 417083407 FH: colon cancer (Z80.0) Active confirmed Plan Of Treatment Future Test Test Name Order Date COLONOSCOPY 10/29/2016 COLONOSCOPY 06/14/2020 COLONOSCOPY 09/21/2023 Insurance Providers Payer Name Payer Address Payer Phone Subscriber Number Group Number Insured Name Patient Relationship to Insured Coverage Start Date Coverage End Date [facility] [address] [place], [place] [id number] LISANDRO GARCIA Self - patient is the insured Medical (General) History Medical History History ICD Code colon polyps, colonoscopy , normal, three-year followup due to poor prep. hypertension osteoarthritis gastroesophageal reflux disease elevated cholesterol depression vitamin D deficiency Surgical History Surgery Date(Month/Year) toe surgery
--- OUTSIDE RECORDS SUMMARY | 2025-02-18 13:04 | XMS_ITS | Patient Health Record ---
Author Organization [facility] Address [address] [place] [address] Care Team Providers Care Furniture Detailer Name Role Phone Teodoro F.N.P, Maria Ines Primary Care Provider Eric Ortiz Unavailable [phone] Reason For Referral No Information Medications Medication SIG (Take, Route, Frequency, Duration) Notes Start Date End Date Status hydroCHLOROthiazide 12.5 MG Orally Active Sertraline HCl 100 MG Orally Active Vitamin D3 1000 UNIT Orally Active Omeprazole 40 MG Orally Act ilya Social History Tobacco Use: Social History Observation Description Date Details (start date - stop date) Never Smoker NA - NA Tobacco Use/Smoking Question Answer Notes Are you a: nonsmoker Additional Findings: Tobacco Non-User Current no n-smoker Alcohol Screen Question Answer Notes Did you have a drink containing alcohol in the p ast year? No Points 0 Interpretation Negative Tobacco use other than smoking: Question Answer Notes Are you an other tobacco user? No Problems Problem Type SNOMED Code ICD Code Onset Dates Problem Status W/U Status Risk Notes Problem Acquired hammer toe of left foot (2648088212723 103) Other hammer toe(s) (acquired), left foot (M20.42) Active confirmed Plan Of Treatment No Information Insurance Providers Payer Name Payer Address Payer Phone Subscriber Number Group Number Insured Name Patient Relationship to Insured Coverage Start Date Coverage End Date [employer] [address] [place] [address] [id number] Mario Younger Self - patient is the insured Medical (General) History Medical History History ICD Code Arthritis Knee Pain High blood pressure Depression Reflux ( GERD) Surgical History Surgery Date(Month/Year) bone removal from baby toes 1998
== END 2025-02-18 14:06 | disposition home or self-care (01) ==
PROVIDERS: PCP Internal Medicine; Visit Provider Physician Assistant
DX: R42 Dizziness and giddiness (principal)